=== PATIENT | female | born 1935 | race Caucasian/White ===

== ENCOUNTER 2016-11-18 17:09 | Emergency (ER) | payer MEDICARE, OTHER ==
[2016-11-18 19:23] LABS: HEMOGLOBIN 14.1 gm/dl (12.3-15.3); RED BLOOD COUNT 4.82 M/UL (4.00-5.10); WHITE BLOOD COUNT 11.6 K/UL (4.5-11.0)
[2016-11-18 19:43] LABS: BUN/CREATININE RATIO 35 (0-10)
== END 2016-11-19 04:45 | disposition home or self-care (01) ==
LOC: ER1 17:09
PROVIDERS: Physician Assistant
DX: K52.9 Noninfective gastroenteritis and colitis, unspecified (principal); R41.82 Altered mental status, unspecified; I10 Essential (primary) hypertension; E78.5 Hyperlipidemia, unspecified
CPT/HCPCS: 36415; 70450; 71010; 80053; 81001; 82550; 82553; 83874; 84484; 85025; 87086; 93005; 96361; 96365; 99285; J1335; J7040; J7050; Q9962

== ENCOUNTER 2017-01-17 20:48 | Emergency (ER) | payer MEDICARE, OTHER ==
[2017-01-18 02:50] LABS: BUN/CREATININE RATIO 20 (0-10)
[2017-01-18 02:54] LABS: HEMOGLOBIN 10.5 gm/dl (12.3-15.3); RED BLOOD COUNT 3.64 M/UL (4.00-5.10); WHITE BLOOD COUNT 9.2 K/UL (4.5-11.0)
== END 2017-01-18 08:00 | disposition home or self-care (01) ==
LOC: ER1 20:48
PROVIDERS: Emergency Medicine
DX: K44.9 Diaphragmatic hernia without obstruction or gangrene (principal); K21.9 Gastro-esophageal reflux disease without esophagitis; I10 Essential (primary) hypertension; C34.90 Malignant neoplasm of unspecified part of unspecified bronchus or lung; Z90.89 Acquired absence of other organs
CPT/HCPCS: 36415; 80053; 81001; 82550; 82553; 83690; 83874; 84484; 85025; 85610; 85730; 87077; 87086; 87186; 93005; 96361; 96374; 96375; 99284; J0696; J2270; J2405; J7030; J7050

== ENCOUNTER 2021-03-16 00:52 | Inpatient (IN) | payer MEDICARE, OTHER ==
[~2021-03-16] VITALS: Ht 152.4 cm; Wt 54.0 kg
[~2021-03-16 00:52] MED LIST: ABILIFY10 MG PO; CARBIDOPA-LEVO1 EAC5 PO; COLACE 100MG C100 MG PO; CYCLOBENZAPRINE10 MG PO; DESYREL 50 MG T50 MG PO; ELIQUIS 2.5 MG2.5 MG PO; FERROUS GLUCON324 M1 PO; FUROSEMIDE20 MG PO; HYDROCODON-ACE1 EAC4 PO; LEVOTHYROXINE137 MCG PO; LOPRESSOR 50 MG50 MG PO; LOPRESSOR100 MG PO; MELOXICAM7.5 MG PO; PANTOPRAZOLE SO40 MG PO; POTASSIUM CHLO10 MEQ PO; QUETIAPINE FUMA50 MG PO; RANITIDINE HCL300 MG PO; SINGULAIR10 MG PO
[2021-03-16 02:35] LABS: HEMOGLOBIN 11.3 gm/dl (12.3-15.3); RED BLOOD COUNT 3.95 M/UL (4.00-5.10); WHITE BLOOD COUNT 9.8 K/UL (4.5-11.0)
[2021-03-16 02:52] LABS: BUN/CREATININE RATIO 33 (0-10)
[2021-03-17] MEDS ORDERED: IPRAT-ALBUT 0.5-3 ML INH (04:39)
[2021-03-17] MEDS ORDERED: LASIX TAB 20 MG20 MG PO (04:40)
[2021-03-17] MEDS ORDERED: LEVOTHYROXINE137 MC1 PO (04:41)
[2021-03-17] MEDS ORDERED: ESCITALOPRAM OXA5 MG PO (04:43)
[2021-03-17 11:57] LABS: BUN/CREATININE RATIO 30 (0-10)
[2021-03-18 04:04] LABS: BUN/CREATININE RATIO 28 (0-10)
[2021-03-19 01:34] LABS: HEMOGLOBIN 11.1 gm/dl (12.3-15.3); RED BLOOD COUNT 3.82 M/UL (4.00-5.10); WHITE BLOOD COUNT 10.1 K/UL (4.5-11.0)
[2021-03-19 01:49] LABS: BUN/CREATININE RATIO 24 (0-10)
--- NOTE | 2021-03-19 11:47 | NUR ---
PT GONE DOWN FOR PROCEDURE
[2021-03-19] MEDS ORDERED: AMIODARONE HCL200 MG PO (15:53)
[2021-03-19] MEDS ORDERED: AUGMENTIN 500-500 MG PO (16:00)
[2021-03-21 01:20] LABS: BUN/CREATININE RATIO 39 (0-10)
[2021-03-21] MEDS ORDERED: LOPRESSOR 25 MG25 MG PO (12:28)
== END 2021-03-22 20:00 | DRG 180 ==
LOC: ER1 00:52 → PROG CARE 05:00 → CDU 05:00 → PROG CARE 14:45
PROVIDERS: Internal Medicine; Surgery; ADMIT Internal Medicine
PROC: 0W9930Z Drainage of Right Pleural Cavity with Drainage Device, Percutaneous Approach (ICD-10-PCS; principal; 2021-03-19 10:00)
DX: C34.90 Malignant neoplasm of unspecified part of unspecified bronchus or lung (principal); J96.21 Acute and chronic respiratory failure with hypoxia; E43 Unspecified severe protein-calorie malnutrition; J91.0 Malignant pleural effusion; J98.11 Atelectasis; R64 Cachexia; N39.0 Urinary tract infection, site not specified; M84.48XA Pathological fracture, other site, initial encounter for fracture; Z20.822 Contact with and (suspected) exposure to COVID-19; Z66 Do not resuscitate; E03.9 Hypothyroidism, unspecified; I10 Essential (primary) hypertension; K21.9 Gastro-esophageal reflux disease without esophagitis; G20 Parkinson's disease; D63.8 Anemia in other chronic diseases classified elsewhere; I48.0 Paroxysmal atrial fibrillation; G89.29 Other chronic pain; F02.80 Dementia in other diseases classified elsewhere, unspecified severity, without behavioral disturbance, psychotic disturbance, mood disturbance, and anxiety; Z79.01 Long term (current) use of anticoagulants; Z87.311 Personal history of (healed) other pathological fracture; Z99.81 Dependence on supplemental oxygen; Z98.42 Cataract extraction status, left eye; Z98.41 Cataract extraction status, right eye; Z90.49 Acquired absence of other specified parts of digestive tract; Z68.25 Body mass index [BMI] 25.0-25.9, adult; Z90.710 Acquired absence of both cervix and uterus; Z98.890 Other specified postprocedural states; Z80.1 Family history of malignant neoplasm of trachea, bronchus and lung
CPT/HCPCS: 36415; 71045; 71250; 80048; 80053; 81001; 82550; 82553; 83605; 83735; 83874; 83880; 84132; 84439; 84443; 84484; 85025; 86140; 87040; 92526; 92610; 93005; 94760; 96374; 99285; C1729; C9113; J0696; J1160; J2270; J2543; J2704; J3475; J3480; J7040; J7070; J7120; U0002

== ENCOUNTER → 2021-04-19 | Outpatient (CLI) | payer MEDICARE, OTHER ==
[~2021-04-19] MED LIST changes: +AMIODARONE HCL200 MG PO; +AUGMENTIN 500-500 MG PO; +ESCITALOPRAM OXA5 MG PO; +IPRAT-ALBUT 0.5-3 ML INH; +LASIX TAB 20 MG20 MG PO; +LEVOTHYROXINE137 MC1 PO; +LOPRESSOR 25 MG25 MG PO
== END ==
LOC: EXRD 11:27
DX: J91.0 Malignant pleural effusion (principal)
CPT/HCPCS: 71045

== ENCOUNTER 2021-04-23 12:36 | Emergency (ER) | payer MEDICARE, OTHER ==
[2021-04-23 13:40] LABS: HEMOGLOBIN 9.8 gm/dl (12.3-15.3); RED BLOOD COUNT 3.61 M/UL (4.00-5.10); WHITE BLOOD COUNT 10.3 K/UL (4.5-11.0)
[2021-04-23 13:55] LABS: BUN/CREATININE RATIO 17 (0-10)
[2021-04-23] MEDS ORDERED: ELIQUIS 2.5 MG2.5 MG PO (15:08)
== END 2021-04-23 16:05 | disposition home or self-care (01) ==
LOC: ER1 12:36
PROVIDERS: Family Medicine
DX: I82.412 Acute embolism and thrombosis of left femoral vein (principal); I82.432 Acute embolism and thrombosis of left popliteal vein; F03.90 Unspecified dementia, unspecified severity, without behavioral disturbance, psychotic disturbance, mood disturbance, and anxiety; C34.91 Malignant neoplasm of unspecified part of right bronchus or lung; I48.91 Unspecified atrial fibrillation; Z88.5 Allergy status to narcotic agent; Z88.6 Allergy status to analgesic agent; J90 Pleural effusion, not elsewhere classified; D64.9 Anemia, unspecified; G20 Parkinson's disease
CPT/HCPCS: 80048; 82550; 82553; 83874; 84484; 85025; 93005; 93971; 99285; J1885